=== PATIENT | female | born 1990 | race Caucasian/White ===

== ENCOUNTER 2023-03-22 00:44 | Emergency (ER) | payer OTHER ==
[~2023-03-22] VITALS: Ht 165.1 cm; Wt 56.7 kg
[2023-03-22 01:26] VITALS: BP 120/67
== END 2023-03-22 04:29 | disposition home or self-care (01) ==
LOC: ER 00:44
DX: S61.512A Laceration without foreign body of left wrist, initial encounter (principal); F17.200 Nicotine dependence, unspecified, uncomplicated; Z23 Encounter for immunization; W29.3XXA Contact with powered garden and outdoor hand tools and machinery, initial encounter
CPT/HCPCS: 12001; 73090; 90471; 90714; 90715; 99283-25